=== PATIENT | female | born 1950 | race Caucasian/White ===

== ENCOUNTER 2016-10-11 15:08 | Emergency (ER) | payer MEDICARE, MEDICAID ==
[~2016-10-11 15:08] MED LIST: Sodium Chloride Irrig Solution 250 ML BOT ONE
[2016-10-11] MEDS ORDERED: Lidocaine 1% 20 ML MDV ONE (15:29)
[2016-10-11] MEDS ORDERED: Triple Antibiotic Ointment 15 GM TUBE ONE (15:48)
[2016-10-11] MEDS ORDERED: Bacitracin Zinc 1 Packet ONE (15:48)
[2016-10-11] MEDS ORDERED: Triple Antibiotic Oint 1 GM Packet ONE (15:51)
--- NOTE | 2016-10-11 16:06 | ERRECORD ---
[facility] EMERGENCY RECORD HPI LACERATION (15:57 LHOD) CHIEF COMPLAINT: Patient presents for evaluation of laceration to finger, on the left, 2.6-4.0cm in length. HISTORIAN: History provided by patient. 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 ROS (15:59 LHOD) CONSTITUTIONAL: Historian denies fever. CARDIOVASCULAR: Historian denies chest pain. RESPIRATORY: Historian denies shortness of breath. GI: Historian denies abdominal pain, reports nausea, denies vomiting. SKIN: LEFT THUMB DISTAL PHALANX PALMAR ASPECT 3 CM LAC. NEUROLOGIC: TINGLING TIP OF LEFT THUMB. NOTES: All systems reviewed, negative except as described above. PAST MEDICAL HISTORY MEDICAL HISTORY: Flu vaccine up to date, Tetanus immunization up to date, Date of immunization: 07/16/2012, Pneumococcal vaccine not up to date, Bulging disc in lower back, irritable bowel syndrome, Fibromyalgia, COPD WITH ASTHMA, DIVERTICULOSIS, CYSTITIS, GERD, TMJ, HIATIAS HERNIA,. (15:23 CJEF) FEMALE SURGICAL HISTORY: Surgical history of tonsillectomy, ESOPHAGEL SURGERY, Surgical history of cholecystectomy, HYST, Surgical history of orthopedic surgery, RIGHT HAND. x3 bladder retractions. (15:23 CJEF) PSYCHIATRIC HISTORY: No previous psychiatric history. (15:23 CJEF) SOCIAL HISTORY: Patient denies alcohol use, Patient denies drug use, Patient currently uses tobacco, smokes cigarettes, daily, "I think I smoke a pack/week". (15:23 CJEF) NOTES: Nursing records reviewed, AMBIDEXTROUS. (16:22 LHOD) KNOWN ALLERGIES hydrocodone Penicillins: Reaction: Rash, Source: Patient CURRENT MEDICATIONS (15:21 CJEF) Advair Diskus: BLISTER, WITH INHALATION DEVICE : Strength - 500 mcg-50 mcg/Dose : INHALATION Patient Dose: 1 puff(s) Inhaler. Ventolin: AEROSOL (GRAM) : Strength - 90 mcg : INHALATION Patient Dose: Unknown. VITAL SIGNS (15:17 CJEF) VITAL SIGNS: BP: 144/76, Pulse: 78, Resp: 18, Temp: 98 &a-1R&a+25V*p+0X*t7128C*c202B*c15G*c2P*p-0X&a-25V&a+1R Name: Jesus Mills : 1950 F65 MedRec: [id number] AcctNum: [id number] Prepared: FriOct 11, 2016 16:38 by Interface Page 1 of 2 pMD [facility] EMERGENCY RECORD (Tympanic), Pain: 8, O2 sat: 100 on Room Air, Time: 10/11/2016 15:17. PHYSICAL EXAM (16:19 LHOD) CONSTITUTIONAL: Vital signs reviewed, Patient afebrile, Pulse normal, Blood pressure normal, Respiratory rate normal, Patient appears in pain, in mild pain distress, Patient alert and oriented to person, place and time. UPPER EXTREMITY: LEFT THUMB 3 CM LACERATION OF DISTAL PHALANX---PROXIMAL HUERTA ASPECT OF DISTAL PHALANX. SKIN: 3 CM CLEAN LINEAR LAC OF LEFT THUMB DISTAL PHALANX--PROXIMAL PALMAR ASPECT. RADIAL ASPECT. MEDICATION ADMINISTRATION SUMMARY Drug Name: *Neosporin (ivk-riz-lwucl) topical ointm, Dose Ordered: 1 units, Route: Topical, Status: Given, Time: 15:58 10/11/2016, *Additional information available in notes, Detailed record available in Medication Service section. PROBLEM LIST No recorded problems DIAGNOSIS (15:45 LHOD) FINAL: PRIMARY: LEFT THUMB PALMAR DISTAL PHALANX LACERATION. PRESCRIPTION No recorded prescriptions DISPOSITION PATIENT: Disposition Type: Discharge, Disposition: *Discharge Home, Condition: Good. (15:45 LHOD) Patient left the department. (16:00 [facility]) Davidson: EF=ZARA Cates, Nikky LHOD=MD Brandyn, Bella &a-1R&a+25V*p+0X*[id number]*c202B*c15G*c2P*p-0X&a-25V&a+1R Name: Jesus Mills : 1950 F65 MedRec: [id number] AcctNum: [id number] Prepared: FriOct 11, 2016 16:38 by Interface Page 2 of 2 pMD [facility]
--- NOTE | 2016-10-11 16:12 | PICIS ---
[facility] EMERGENCY RECORD TRIAGE (FriOct 11, 2016 15:20 CJEF) TRIAGE NOTES: PT REPORTS THAT SHE WAS WASHING DISHES WHEN SHE LACERATED HER LEFT THUMB ON A TIN CAN LID. PT WALKS IN WITH TOWEL OVER LACERATION. PT WITH APPROX 3CM LACERATION TO LEFT THUMB, NEAR THE FIRST JOINT. (FriOct 11, 2016 15:20 CJEF) PATIENT: NAME: Jesus Mills, AGE: 65, GENDER: female, : Fri1950, TIME OF GREET: FriOct 11, 2016 15:09, PREFERRED LANGUAGE: Bermudian, ETHNICITY: Not or , FALL RISK: NO, ECODE BILLING MAP: [facility], SSN: [id number], Zip Code: [address], KG WEIGHT: 76.66, PHONE: , , , PERSON ID: [id number], PCP: MD SAM IMELDA. (FriOct 11, 2016 15:20 CJEF) COMPLAINT: LT THUMB LACERATION. (FriOct 11, 2016 15:20 CJEF) ADMISSION: URGENCY: 3 Urgent, ADMISSION SOURCE: Home, TRANSPORT: Walk-in, BED: TRIAGE. (FriOct 11, 2016 15:20 CJEF) ASSESSMENT: Assessment: LACERATION TO LEFT THUMB. (15:23 CJEF) PAIN: Patient complains of pain described as, Location LEFT THUMB. (15:23 CJEF) IMMUNIZATIONS: Flu vaccine up to date, Tetanus immunization up to date, Pneumococcal vaccine not up to date. (15:23 CJEF) SIRS SCORING: Heart Rate 55-109 (0), Temp range 96.8-101.1 (0), respiratory rate 12-24 (0), Mental Status altered: no (0), Infection or Suspected Infection: No. (15:23 CJEF) TRIAGE SCREENING: Patient denies suicidal ideation, Patient denies presence of domestic violence. (15:23 CJEF) PROVIDERS: TRIAGE NURSE: Nikky Cates RN. (FriOct 11, 2016 15:20 CJEF) VITAL SIGNS: BP 144/76, Pulse 78, Resp 18, Temp 98, (Tympanic), Pain 8, O2 Sat 100, on Room Air, Time 10/11/2016 15:17. (15:17 CJEF) PREVIOUS VISIT ALLERGIES: Penicillins. (FriOct 11, 2016 15:20 CJEF) Penicillins. (15:23 CJEF) KNOWN ALLERGIES hydrocodone Penicillins: Reaction: Rash, Source: Patient CURRENT MEDICATIONS (15:21 CJEF) Advair Diskus: BLISTER, WITH INHALATION DEVICE : Strength - 500 mcg-50 mcg/Dose : INHALATION Patient Dose: 1 puff(s) Inhaler. Ventolin: AEROSOL (GRAM) : Strength - 90 mcg : INHALATION Patient Dose: Unknown. VITAL SIGNS (15:17 CJEF) VITAL SIGNS: BP: 144/76, Pulse: 78, Resp: 18, Temp: 98 (Tympanic), Pain: 8, O2 sat: 100 on Room Air, Time: 10/11/2016 15:17. &a-1R&a+25V*p+0X*u3358H*c202B*c15G*c2P*p-0X&a-25V&a+1R Name: Jesus Mills : 1950 F65 MedRec: [id number] AcctNum: [id number] Prepared: FriOct 11, 2016 16:39 by Interface Page 1 of 6 pMD [facility] EMERGENCY RECORD NURSING ASSESSMENT: FALL RISK (15:24 CJEF) FALL RISK: Fall risk assessment findings include: History of falls (5), No bed rest greater than 2 days (0), No use of level of consciousness altering agents with mentation or cognitive changes (0), No change in blood pressure (0), Sensory deficits (1), Impaired mobility (3), No neurologic diagnosis (0), No elimination problems (0), No confusion (0), Total score 9, Fall risk. HENDRICH II FALL RISK: Hendrich II Fall Risk assessment findings include patient not confused, disoriented or impulsive, not symptomatic or depressed, no altered elimination, no dizziness or vertigo, female, no antiepileptics (anticonvulsants) administered, no Benzodiazepines administered, Pushes up, successful in one attempt(1), Total score 1, Score less than 5. Patient not high risk for falls. NURSING ASSESSMENT: SKIN (15:23 CJEF) CONSTITUTIONAL: Complex assessment performed, Patient arrives ambulatory, Gait steady, History obtained from patient, Patient appears comfortable, Patient cooperative, Patient alert, Oriented to person, place and time, Skin warm, Skin dry, Skin normal in color, Mucous membranes pink, Mucous membranes moist, Patient, with poor personal hygiene, PT REPORTS THAT SHE WAS WASHING DISHES WHEN SHE LACERATED HER LEFT THUMB ON A TIN CAN LID. PT WALKS IN WITH TOWEL OVER LACERATION. PT WITH APPROX 3CM LACERATION TO LEFT THUMB, NEAR THE FIRST JOINT. PAIN: aching pain, LEFT THUMB. SKIN: Skin assessment findings include skin warm, Skin dry, Skin normal in color, Inspection findings include laceration, to LEFT THUMB, length (cm) 3, bleeding controlled, BLEEDING CONTROLLED WITH PRESSURE AND TOWEL, THOUGH WHEN TOWEL REMIVED, BLEEDING STARTS AGAIN. ANTHONY SCALE: (4) Sensory perception has no impairment, (3) Skin is occasionally moist, (3) Patient walks occasionally, (3) Slightly limited mobility, (3) Adequate nutrition, (3) Patient has no apparent problem moving, Anthony Risk Total: 19. NOTES: Patient tolerated procedure well. SAFETY: Side rails up, Cart/Stretcher in lowest position, Family at bedside, Call light within reach, Hospital ID band on. NURSING PROCEDURE: DISCHARGE NOTE (16:00 [facility]) DISCHARGE: Patient discharged to home, ambulating without assistance, family driving, accompanied by other family member, Summary of Care printed/ provided, Patient requested and was provided an electronic copy of Discharge Instructions, Transition record given to patient, Discharge instructions given to patient, Simple or moderate discharge teaching performed, Medication reconciliation form given, Above person(s) verbalized understanding of discharge instructions and follow-up care, Patient treated and evaluated by &a-1R&a+25V*p+0X*h3485B*c202B*c15G*c2P*p-0X&a-25V&a+1R Name: Jesus Mills : 1950 F65 MedRec: [id number] AcctNum: [id number] Prepared: FriOct 11, 2016 16:39 by Interface Page 2 of 6 pMD [facility] EMERGENCY RECORD physician. BELONGINGS: Belongings remain with patient. NOTES: Patient tolerated procedure well. SAFETY: Side rails up, Cart/Stretcher in lowest position, Family at bedside, Call light within reach, Hospital ID band on. NURSING PROCEDURE: NURSE NOTES (15:35 [facility]) NURSES NOTES: Notes: ER MD AT BEDSIDE SUTURING LACERATION. NURSING PROCEDURE: WOUND CARE (15:59 [facility]) PATIENT IDENTIFIER: Patient actively involved in identification process, Patient's identity verified by patient stating name, Patient's identity verified by patient stating date. TIMEOUT: Prior to procedure, correct patient verified by, Correct procedure verified, Correct site verified, Correct equipment utilized. WOUND CARE: Wound care indicated to promote healing, Notes: CLEANING OF WOUND AND SUTURES PLACED BY BRANDYN. FOLLOW-UP: After procedure, simple dressing applied, Notes: NON-ADHESIVE BANDAGED PLACED AND SECURED WITH COBAN. NOTES: Patient tolerated procedure well. SAFETY: Side rails up, Cart/Stretcher in lowest position, Family at bedside, Call light within reach, Hospital ID band on. ORDER DETAILS Order Name: chart element #1, Status: Active, Time: 15:59 10/11/2016, User: System, - Ordered for: MD Ahumada Lefayne, - Entered by: ZARA Cates, Nikky Shaila Oct 11, 2016 15:59, - Quantity: 1, Order Name: chart element #4, Status: Active, Time: 15:59 10/11/2016, User: System, - Ordered for: MD Ahumada Lefayne, - Entered by: ZARA Cates, Nikky Shaila Oct 11, 2016 15:59, - Quantity: 1, Order Name: DRESSING APPLICATION/CHANGE, Status: Done, Time: 15:59 10/11/2016, User: Aginova, - Ordered for: MD Ahumada Lefayne, - Entered by: MD Ahumada Lefayne - Fri Oct 11, 2016 15:44, - Quantity: 1. MEDICATION ADMINISTRATION SUMMARY Drug Name: *Neosporin (nvn-wys-aqkmd) topical ointm, Dose Ordered: 1 units, Route: Topical, Status: Given, Time: 15:58 10/11/2016, *Additional information available in notes, Detailed record available in Medication Service section. &a-1R&a+25V*p+0X*z5553A*c202B*c15G*c2P*p-0X&a-25V&a+1R Name: Jesus Mills : 1950 F65 MedRec: [id number] AcctNum: [id number] Prepared: FriOct 11, 2016 16:39 by Interface Page 3 of 6 pMD [facility] EMERGENCY RECORD MEDICATION SERVICE (15:58 LHOD) Neosporin (igq-znc-tokzl) topical ointment: Order: Neosporin (ysk-luf-xigsd) topical ointment (neomycin sulfate/bacitracin zinc/polymyxin B) - Dose: 1 units : Topical Notes: LEFT THUMB WITH DRESSING Ordered by: Bella Ahumada MD Entered by: Bella Ahumada MD FriOct 11, 2016 15:45 Documented as given by: Nikky Cates RN FriOct 11, 2016 15:58 Patient, Medication, Dose, Route and Time verified prior to administration. Amount given: 1 SHAUNA, Correct patient, time, route, dose and medication confirmed prior to administration, Patient advised of actions and side-effects prior to administration, Allergies confirmed and medications reviewed prior to administration, Patient tolerated procedure well, Advised not to ambulate without assistance, Patient in position of comfort, Side rails up, Cart in lowest position, Family at bedside. HPI LACERATION (15:57 LHOD) CHIEF COMPLAINT: Patient presents for evaluation of laceration to finger, on the left, 2.6-4.0cm in length. HISTORIAN: History provided by patient. 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 ROS (15:59 LHOD) CONSTITUTIONAL: Historian denies fever. CARDIOVASCULAR: Historian denies chest pain. RESPIRATORY: Historian denies shortness of breath. GI: Historian denies abdominal pain, reports nausea, denies vomiting. SKIN: LEFT THUMB DISTAL PHALANX PALMAR ASPECT 3 CM LAC. NEUROLOGIC: TINGLING TIP OF LEFT THUMB. NOTES: All systems reviewed, negative except as described above. PAST MEDICAL HISTORY MEDICAL HISTORY: Flu vaccine up to date, Tetanus immunization up to date, Date of immunization: 07/16/2012, Pneumococcal vaccine not up to date, Bulging disc in lower back, irritable bowel syndrome, Fibromyalgia, COPD WITH ASTHMA, DIVERTICULOSIS, CYSTITIS, GERD, TMJ, HIATIAS HERNIA,. (15:23 [facility]) FEMALE SURGICAL HISTORY: Surgical history of tonsillectomy, ESOPHAGEL SURGERY, Surgical history of cholecystectomy, HYST, Surgical history of orthopedic surgery, RIGHT HAND. x3 bladder retractions. (15:23 CJEF) PSYCHIATRIC HISTORY: No previous psychiatric history. (15:23 CJEF) SOCIAL HISTORY: Patient denies alcohol use, Patient denies drug use, Patient currently uses tobacco, smokes cigarettes, daily, &a-1R&a+25V*p+0X*d1045T*c202B*c15G*c2P*p-0X&a-25V&a+1R Name: Jesus Mills : 1950 F65 MedRec: [id number] AcctNum: [id number] Prepared: FriOct 11, 2016 16:39 by Interface Page 4 of 6 pMD [facility] EMERGENCY RECORD "I think I smoke a pack/week". (15:23 CJEF) NOTES: Nursing records reviewed, AMBIDEXTROUS. (16:22 LHOD) PHYSICAL EXAM (16:19 LHOD) CONSTITUTIONAL: Vital signs reviewed, Patient afebrile, Pulse normal, Blood pressure normal, Respiratory rate normal, Patient appears in pain, in mild pain distress, Patient alert and oriented to person, place and time. UPPER EXTREMITY: LEFT THUMB 3 CM LACERATION OF DISTAL PHALANX---PROXIMAL HUERTA ASPECT OF DISTAL PHALANX. SKIN: 3 CM CLEAN LINEAR LAC OF LEFT THUMB DISTAL PHALANX--PROXIMAL PALMAR ASPECT. RADIAL ASPECT. EVENTS TRANSFER: Triage to Emergency Triage. (FriOct 11, 2016 15:20 CJEF) Emergency Triage to Main ED -02. (15:23 CJEF) Removed from Emergency Main ED -02. (16:00 CJEF) LACERATION-SINGLE REPAIR (16:23 LHOD) LACERATION REPAIR: Digital block with, 1% LIDOCAINE without epinephrine, 3mL, Patient prepped and draped in usual sterile fashion, Wound irrigated with normal saline, (mls) 150, Simple repair of laceration, to the hand, LINEAR---LEFT THUMB, total length 3.0 cm, Skin layer closed, using 4.0, prolene suture, 3 sutures, interrupted, After procedure, wound well approximated, antibiotic ointment applied, dressing applied, Tetanus status up to date. PROBLEM LIST No recorded problems DIAGNOSIS (15:45 LHOD) FINAL: PRIMARY: LEFT THUMB PALMAR DISTAL PHALANX LACERATION. DISPOSITION PATIENT: Disposition Type: Discharge, Disposition: *Discharge Home, Condition: Good. (15:45 LHOD) Patient left the department. (16:00 [facility]) INSTRUCTION (15:46 LHOD) DISCHARGE: FINGER LACERATION. FOLLOWUP: MD FLACO, RY, [facility], [address] [place] [id number], [phone], Follow up with Primary Care Physician in 7 days. SPECIAL: SUTURE REMOVAL 7 DAYS. KEEP AREA CLEAN AND DRY, OR COVERED WITH ANTIBIOTIC OINTMENT. *RETURN IF WORSE Follow-up with your PCP. &a-1R&a+25V*p+0X*d6759Z*c202B*c15G*c2P*p-0X&a-25V&a+1R Name: Jesus Mills : 1950 F65 MedRec: [id number] AcctNum: [id number] Prepared: FriOct 11, 2016 16:39 by Interface Page 5 of 6 pMD [facility] EMERGENCY RECORD PRESCRIPTION No recorded prescriptions IMAGING *DISCHARGE INSTRUCTIONS RECEIPT: Image captured from scanner. (16:01 [facility]) *SUPPLY CHARGE SHEET: Image captured from scanner. (16:14 [facility]) ADMIN (16:33 OD) DIGITAL SIGNATURE: MD Brandyn, Bella. Davidson: [facility]=ZARA Cates, Nikky LHOD=MD Ahumada Lefayne &a-1R&a+25V*p+0X*v7974A*c202B*c15G*c2P*p-0X&a-25V&a+1R Name: Jesus Mills : 1950 F65 MedRec: [id number] AcctNum: [id number] Prepared: FriOct 11, 2016 16:39 by Interface Page [address] [facility]
== END 2016-10-11 16:00 | disposition home or self-care (01) ==
LOC: MADERS 15:08
DX: S61.012A Laceration without foreign body of left thumb without damage to nail, initial encounter (principal); J45.909 Unspecified asthma, uncomplicated; J44.9 Chronic obstructive pulmonary disease, unspecified; K21.9 Gastro-esophageal reflux disease without esophagitis; K44.9 Diaphragmatic hernia without obstruction or gangrene; K57.90 Diverticulosis of intestine, part unspecified, without perforation or abscess without bleeding; N30.90 Cystitis, unspecified without hematuria; M79.7 Fibromyalgia; K58.9 Irritable bowel syndrome, unspecified; F17.210 Nicotine dependence, cigarettes, uncomplicated; Z79.899 Other long term (current) drug therapy; W26.8XXA Contact with other sharp object(s), not elsewhere classified, initial encounter
CPT/HCPCS: 12002; J2001

== ENCOUNTER 2017-07-01 14:23 | Outpatient (CLI) | payer MEDICARE, MEDICAID ==
--- NOTE | 2017-07-01 16:11 | RAD ---
RIGHT SHOULDER THREE VIEWS: History: Chronic right shoulder pain. FINDINGS: There are degenerative changes in the AC and glenohumeral joints. No fracture, dislocation, or bony destruction is seen. IMPRESSION: Right shoulder osteoarthritis. POS: [facility]
--- NOTE | 2017-07-01 16:17 | RAD ---
CHEST TWO VIEWS: History: Bronchitis. Comparison: 09-23-13 FINDINGS: Cardiac silhouette and pulmonary vasculature are unremarkable. Mediastinum is midline. There is no c onfluent airspace consolidation, pneumothorax, or pleural fluid. Degenerative changes involving the thoracic spine on the lateral view. IMPRESSION: No active cardiopulmonary abnormalities are demonstrated. POS: [facility]
== END 2017-07-01 14:24 | disposition home or self-care (01) ==
LOC: MADRAD 14:23
PROVIDERS: ATTEND Family Medicine
DX: M25.511 Pain in right shoulder (principal); J20.9 Acute bronchitis, unspecified; M19.011 Primary osteoarthritis, right shoulder
CPT/HCPCS: 71020

== ENCOUNTER 2019-01-22 14:50 | Outpatient (CLI) | payer MEDICARE, MEDICAID ==
[2019-01-22 15:02] LABS: Bilirubin Negative (Negative); Blood, Urine Small (Negative); Glucose, Urine (Dipstick) Negative (Negative); Leukocyte Negative (Negative); Nitrite Negative (Negative); Protein, Urine (Dipstick) Negative (Neg-Trace); Specific Gravity, Urine 1.025 (1.005-1.030); Urobilinogen 0.2 mg/dL (0.2-1.0)
[2019-01-22 15:37] LABS: Clarity Slightly Cloudy (Clear)
[2019-01-22 15:40] LABS: Bacteria/HPF 4+ HPF (None Seen); WBC/HPF 0-3 HPF (0-3)
== END 2019-01-22 14:51 | disposition home or self-care (01) ==
LOC: MADLAB 14:50
PROVIDERS: ATTEND Urology
DX: N39.41 Urge incontinence (principal)
CPT/HCPCS: 81001; 87086

== ENCOUNTER 2021-09-03 15:27 | Emergency (ER) | payer MEDICARE, MEDICAID ==
[2021-09-03 16:46] LABS: Band 1 % (5-11); Eosinophils 1 % (0-10); Hemoglobin 13.5 g/dL (12.0-16.0); Lymphocytes 28 % (21-51); MDiff Complete? YES; Mean Corpuscular Hemoglobin 29.4 pg (27.0-31.0); Mean Platelet Volume 7.3 fL (7.4-10.4); Monocytes 5 % (0-10); Neutrophil 65 % (42-75); Platelet Count 257 thou/uL (130-400); RBC Distribution Width 13.5 % (11.5-14.5); Red Blood Cell (RBC) Count 4.57 mill/uL (4.20-5.40); White Blood Cell (WBC) Count 5.9 thou/uL (4.8-10.8)
[2021-09-03] MEDS ORDERED: methylPREDNISolone Sod Succ/PF 125 MG/2 ML VIAL ONE (16:50)
[2021-09-03 16:55] LABS: ALT (SGPT) 18 U/L (8-55); AST (SGOT) 24 U/L (5-34); Albumin 4.2 g/dL (3.4-4.8); Alkaline Phosphatase 64 U/L (40-110); Anion Gap 16 mmol/L (10-20); BUN (Urea Nitrogen) 7 mg/dL (9.8-20.1); Bilirubin, Total 0.3 mg/dL (0.2-1.2); CK (CPK) 112 U/L (29-168); Calc. Creatinine Clearance 0 mL/min (70-130); Calcium 8.9 mg/dL (7.8-10.44); Carbon Dioxide 22 mmol/L (23-31); Chloride 106 mmol/L (98-107); Globulin 2.6 g/dL (2.4-3.5); Glucose 107 mg/dL (83-110); Protein, Total 6.8 g/dL (5.8-8.1); Sodium 140 mmol/L (136-145)
[2021-09-03 17:06] LABS: CKMB 2.2 ng/mL (0-6.6)
== END 2021-09-03 18:34 | disposition home or self-care (01) ==
LOC: MADERS 15:27
DX: J44.1 Chronic obstructive pulmonary disease with (acute) exacerbation (principal); R06.03 Acute respiratory distress; K21.9 Gastro-esophageal reflux disease without esophagitis; F17.210 Nicotine dependence, cigarettes, uncomplicated
CPT/HCPCS: 36415; 71045; 80053; 82550; 82553; 83605; 84484; 85025; 86140; 87040; 93005; 94640; 94760; 96365; 96375; 99406; J1956; J2930; J7620

== ENCOUNTER 2023-01-29 14:36 | Outpatient (CLI) | payer OTHER, MEDICAID | END 2023-01-29 14:37 | disposition home or self-care (01) | LOC: MADRAD 14:36 | PROVIDERS: ATTEND Family Medicine | DX: M54.42 Lumbago with sciatica, left side (principal); M47.816 Spondylosis without myelopathy or radiculopathy, lumbar region | CPT/HCPCS: 72100 ==

== ENCOUNTER 2025-06-07 11:53 | Outpatient (CLI) | payer MEDICARE, MEDICAID ==
[2025-06-07 12:13] LABS: #Basophils 0.2 thou/uL (0.0-0.2); #Eosinophils 1.1 thou/uL (0.0-0.7); #Lymphocytes 2.2 thou/uL (1.20-3.40); #Monocytes 0.7 thou/uL (0.11-0.59); #Neutrophils 4.6 thou/uL (1.40-6.50); %Basophils 2.0 % (0.0-1.0); %Eosinophils 12.3 % (0.0-10.0); %Lymphocytes 25.1 % (21.0-51.0); %Monocytes 8.3 % (0.0-10.0); %Neutrophils 52.3 % (42.0-75.0); Hematocrit 40.4 % (36.0-47.0); Hemoglobin 12.5 g/dL (12.0-16.0); Mean Corpuscular Hemoglobin 29.5 pg (27.0-31.0); Mean Corpuscular Volume 95.2 fl (78.0-98.0); Platelet Count 399 10x3/uL (130-400); Red Blood Cell (RBC) Count 4.24 mill/uL (4.20-5.40); White Blood Cell (WBC) Count 8.8 10x3/uL (4.8-10.8)
[2025-06-07 12:28] LABS: ALT (SGPT) 8 U/L (Less than 34); AST (SGOT) 21 U/L (11-34); Albumin 4.3 g/dL (3.1-4.5); Alkaline Phosphatase 56 U/L (40-110); Anion Gap 16 mmol/L (10-20); BUN (Urea Nitrogen) 13 mg/dL (9.8-20.1); Bilirubin, Total 0.4 mg/dL (0.3-1.2); Calc. Creatinine Clearance 0 mL/min (70-130); Calcium 9.5 mg/dL (7.8-10.44); Carbon Dioxide 23 mmol/L (23-31); Cardiac Risk 3.6 (Less than 4.5); Chloride 106 mmol/L (98-107); Cholesterol 249 mg/dl (< 200 Desired); Globulin 3.5 g/dL (2.4-3.5); Glucose 107 mg/dL (83-110); HDL Cholesterol 70 mg/dL (>60 Neg Risk); LDL Cholesterol, Calculated 158 mg/dL; Potassium 4.3 mmol/L (3.5-5.1); Sodium 141 mmol/L (136-145); Triglycerides 107 mg/dL (Less than 150)
[2025-06-07 16:42] LABS: Hep C IgG Ab NONREACTIVE S/CO (NonReactive); Hep C Index 0.06 S/CO (0-0.79); Vitamin D, 25 Hydroxy 28.9 ng/ml (> 30.0)
== END 2025-06-07 11:54 | disposition home or self-care (01) ==
LOC: MADLAB 11:53
PROVIDERS: ATTEND Family Medicine
DX: Z00.00 Encounter for general adult medical examination without abnormal findings (principal); Z11.59 Encounter for screening for other viral diseases; Z13.6 Encounter for screening for cardiovascular disorders; I25.10 Atherosclerotic heart disease of native coronary artery without angina pectoris; E59 Dietary selenium deficiency; G25.81 Restless legs syndrome
CPT/HCPCS: 36415; 80053; 80061; 82306; 85025; 86803